=== PATIENT | female | born 1980 | race African-American/Black ===

== ENCOUNTER → 2017-08-08 | Outpatient (CLI) | payer OTHER ==
--- NOTE | 2017-08-08 12:14 | RAD ---
Three-view right wrist study History: Small lump of the fifth finger side of the right wrist for a year which is getting bigger. Findings: No acute fracture or dislocation or osteolytic process is seen. No significant arthritic change is evident. No soft tissue mass or radiopaque foreign body is evident. IMPRESSION: No significant osseous abnormality is seen. With regard to any palpable lump, sonography may be helpful for further evaluation.
== END | disposition home or self-care (01) ==
LOC: DXRAD 08:16
PROVIDERS: ATTEND Orthopaedic Surgery
DX: M25.841 Other specified joint disorders, right hand (principal)
CPT/HCPCS: 73110